=== PATIENT | male | born 1960 | race Caucasian/White ===

== ENCOUNTER → 2022-05-05 | Outpatient (CLI) | payer OTHER ==
--- NOTE | 2022-05-05 11:33 | Diagnostic Imaging Report ---
INDICATION: Pain. FINDINGS: The alignment is normal. There are mild degenerative changes. There is no fracture or dislocation. 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 Soft tissues are unremarkable. 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 Dictated by: Dictated on workstation # [id number]
== END ==
LOC: RAD 10:47
PROVIDERS: ATTEND Family Medicine
DX: M17.11 Unilateral primary osteoarthritis, right knee (principal)
CPT/HCPCS: 73560